=== PATIENT | female | born 1960 | race Two or more races ===

== ENCOUNTER 2019-03-03 12:17 | Day surgery (SDC) | payer OTHER ==
[2019-03-02 17:40] VITALS: BMI 29.4
[2019-03-03] MEDS ORDERED: PROPOFOL 20 ML ONE (14:33)
[2019-03-03] MEDS ORDERED: MIDAZOLAM HCL 2 MG/2 ML SINGLE DOSE VIAL ONE (14:33)
--- NOTE | 2019-03-03 14:44 | HP ---
History & Physical Update - History History: No Change - Physical Physical: No Change - Assessment Assessment: No Change - Plan Plan: No Change (Hysteroscopy, D&C, possible excision of uterine mass)
[2019-03-03] MEDS ORDERED: ONDANSETRON 4 MG/2 ML VIAL IVPUSH PRN (15:41)
[2019-03-03] MEDS ORDERED: oxyCODONE HCL 5 MG TABLET PO PRN (15:41)
[2019-03-03] MEDS ORDERED: LACTATED RINGERS SOLUTION 1,000 ML IV SCH (15:45)
--- NOTE | 2019-03-03 15:45 | OP ---
Operative Note - Note: Operative Date: 03/03/19 Pre-Operative Diagnosis: Endometrial mass Operation: Hysteroscopy, Polypectomy, D&C Findings: Large endometrial polyp Post-Operative Diagnosis: Other (Endmoetrial polyp) Surgeon: Tab Dixon Anesthesiologist/ROLLER PRINTER: Marva Zamora Anesthesia: General Specimens Removed: Endometrial polyp, endometrial curettings. Estimated Blood Loss (mls): 10 Drains & Tubes with Location: Straight cath bladder Drains, Volume Out (mls): 100 Blood Volume Replaced (mls): 0 Fluid Volume Replaced (mls): 250 Operative Report Dictated: Yes
[2019-03-03 17:47] VITALS: BP 135/71; PULSE 73; TEMP 97.8
--- NOTE | 2019-03-03 21:44 | OP ---
DATE OF OPERATION: 03/03/2019 PREOPERATIVE DIAGNOSIS: Endometrial mass. POSTOPERATIVE DIAGNOSIS: Endometrial polyp. PROCEDURE: Hysteroscopy, polypectomy, dilatation and curettage. SURGEON: Kaleigh Figueroa MD PRESS OPERATOR MEAT: None. ANESTHESIOLOGIST: Marva Zamora MD ANESTHESIA: General. COMPLICATIONS: None. PATHOLOGY: Endometrial polyps and endometrial curettings. ESTIMATED BLOOD LOSS: 10 mL. INTRAVENOUS FLUIDS: 250 mL. URINE OUTPUT: On straight catheterization prior to procedure 100 mL. FINDINGS: Examination under anesthesia revealed a small anteverted uterus with no pelvic or adnexal masses. Hysteroscopy revealed a very large endometrial polyp. Postoperative hysteroscopy revealed a normal uterine cavity with no lesions or remaining polyps. DESCRIPTION OF PROCEDURE: The patient was met preoperatively. Risks, benefits, and alternatives of surgery were discussed in details. All questions were answered. The patient was explained the consent form. The patient asked questions, and all questions were answered. The patient signed the consent form and verbalized her understanding. She was then brought to the OR with the IV running. She was placed on a surgical table in the supine position. The general anesthesia was achieved without difficulty. The patient was then placed in a dorsal lithotomy position using adjustable Beto stirrups. She was examined under anesthesia with the findings as described above. The patient was prepped and draped in the usual sterile fashion. A timeout was conducted as per standard protocol. A straight catheter was used to empty the bladder. A weighted speculum was introduced inside the vagina with good visualization of the cervix. The cervix was grasped with a single-tooth tenaculum. The cervical os was dilated to accommodate a size 13 Paz dilator. A diagnostic hysteroscope was introduced inside of the uterine cavity. A large endometrial polyp was noted. The diagnostic hysteroscope was removed. The endocervical canal was then dilated to accommodate a size 29 Paz dilator. A polyp forcep was then used to completely remove the endometrial polyp. The tissue was sent to Pathology. Once the polyp was removed, a thorough uterine curettage was performed. The tissue was also sent to Pathology. A hysteroscope was once again placed inside of the uterine cavity. A normal uterine cavity was noted with no remaining polyps or lesions. Good hemostasis was noted. All of the instruments were then removed from the patient. Once again, good hemostasis was noted. Sponge, lap, instrument counts were correct. The patient was returned to supine position. She was then transferred to recovery room, awake and in stable condition. KALEIGH FIGUEROA M.D. [id number]
--- NOTE | 2019-03-05 21:05 | PATH ---
Surgical Pathology Report Patient Name: MERRITT FLORES [facility]. Rec. #: [id number] /Age/Gender: 1960 (Age: 58) / F Account: [id number] Location: [facility] Taken: 03/03/2019 Received: 03/04/2019 Reported: 03/05/2019 Physicians: Tab Dixon M.D. Specimen(s) Received A: ENDOMETRIAL POLYP B: ENDOMETRIAL CURETTINGS Clinical History Uterine polyp Final Diagnosis A. ENDOMETRIAL POLYP, POLYPECTOMY: FRAGMENTS OF ENDOMETRIAL POLYP. B. ENDOMETRIAL CURETTINGS, DILATION AND CURETTAGE: STRIPS OF ENDOMETRIAL GLANDS AND INACTIVE GLANDS COMPATIBLE WITH ATROPHIC ENDOMETRIUM IN A CONCORDANT CLINICAL SETTING. Comment: Suggest clinical correlation. Electronically Signed Pita Lockhart M.D. Gross Description A. Received in formalin labeled "endometrial polyp," is a 4.0 x 3.2 x 1.4 cm aggregate of hernandez, irregular to polypoid portions of soft tissue. The largest polyp measures 4 cm in greatest dimension. Animal Biologist sections are submitted in 6 cassettes with the largest serially sectioned polyp in cassettes 3-6. B. Received in formalin labeled "endometrial curetting," is a 1.0 x 0.8 x 0.2 cm aggregate of hernandez-brown soft tissue fragments. The formalin is filtered and the specimen is entirely submitted in one cassette. /03/04/201903/04/2019
== END 2019-03-03 17:35 | disposition home or self-care (01) ==
LOC: JASU-SURG 12:17
PROVIDERS: ATTEND Obstetrics & Gynecology
PROC: 0UJD8ZZ Inspection of Uterus and Cervix, Via Natural or Artificial Opening Endoscopic (ICD-10-PCS; 2019-03-03)
PROC: 0UB97ZX Excision of Uterus, Via Natural or Artificial Opening, Diagnostic (ICD-10-PCS; principal; 2019-03-03 14:00)
PROC: 0UDB7ZX Extraction of Endometrium, Via Natural or Artificial Opening, Diagnostic (ICD-10-PCS; 2019-03-03 14:00)
DX: N84.0 Polyp of corpus uteri (principal)
CPT/HCPCS: 86850; 86900; 86901; 88305-TC; 94760